=== PATIENT | female | born 1965 | race Caucasian/White ===

== ENCOUNTER 2019-11-20 17:34 | Emergency (ER) | payer MEDICARE, BC ==
[~2019-11-20] VITALS: Ht 170.2 cm; Wt 90.9 kg
[2019-11-20] MEDS ORDERED: HYDROcodone/acetaminophen 10/325mg tab PO ONE (19:50)
[2019-11-20 19:53] VITALS: BP 145/58
--- NOTE | 2019-11-20 20:24 | NUR ---
Patient requested to take a picture of x-rays. Per INGRID Brown, "if you pull up the x-ray she can take a picture".
== END 2019-11-20 20:26 | disposition home or self-care (01) ==
LOC: ER 17:35
DX: S92.341A Displaced fracture of fourth metatarsal bone, right foot, initial encounter for closed fracture (principal); Z90.89 Acquired absence of other organs; Z87.891 Personal history of nicotine dependence; Z88.0 Allergy status to penicillin; W55.12XA Struck by horse, initial encounter; Y93.89 Activity, other specified; Y92.89 Other specified places as the place of occurrence of the external cause; Y99.9 Unspecified external cause status
CPT/HCPCS: 73630; 99283